=== PATIENT | female | born 1965 | race African-American/Black ===

== ENCOUNTER 2020-10-04 11:44 | Emergency (ER) | payer MEDICAID, OTHER ==
[~2020-10-04] VITALS: Ht 162.6 cm; Wt 66.0 kg
[~2020-10-04 11:44] MED LIST: Z-QUIL
[2020-10-04] MEDS ORDERED: IBUP-2029 MT (12:11)
[2020-10-04] MEDS ORDERED: CLIN300C12 MT (12:11)
[2020-10-04] MEDS ORDERED: TRAM50TA3 MT (12:11)
[2020-10-04] MEDS ORDERED: KETOROLAC 60MG/2ML VIAL IM ONE (12:15)
[2020-10-04 12:26] VITALS: BP 145/82
== END 2020-10-04 12:28 | disposition home or self-care (01) ==
LOC: ER 11:44
DX: K04.7 Periapical abscess without sinus (principal); Z98.890 Other specified postprocedural states; Z79.899 Other long term (current) drug therapy
CPT/HCPCS: 96372; 99283; J1885; Z7610

== ENCOUNTER 2020-10-07 08:33 | Emergency (ER) | payer OTHER ==
[~2020-10-07] VITALS: Ht 162.6 cm; Wt 66.0 kg
[~2020-10-07 08:33] MED LIST changes: +CLIN300C12 MT; +IBUP-2029 MT; +TRAM50TA3 MT
[2020-10-07] MEDS ORDERED: FAMOTIDINE 20MG/2ML VIAL IV ONE (09:15)
[2020-10-07] MEDS ORDERED: DIPHENHYDRAMINE 50MG/ML VIAL IV ONE (09:15)
[2020-10-07] MEDS ORDERED: LEVO750T46 PO (09:20)
[2020-10-07] MEDS ORDERED: METR500T PO (09:20)
[2020-10-07 10:55] VITALS: BP 126/72
[2020-10-07] MEDS ORDERED: ACETAMINOPHEN 325MG TABLET PO ONE (11:15)
== END 2020-10-07 11:15 | disposition home or self-care (01) ==
LOC: ER 08:33
DX: L27.0 Generalized skin eruption due to drugs and medicaments taken internally (principal); Z98.890 Other specified postprocedural states; Z88.0 Allergy status to penicillin; T36.8X5A Adverse effect of other systemic antibiotics, initial encounter; Y92.018 Other place in single-family (private) house as the place of occurrence of the external cause
CPT/HCPCS: 93005; 96374; 96375; 99284; J1200; J3490

== ENCOUNTER 2021-09-25 08:15 | Inpatient (IN) | payer MEDICAID, OTHER ==
[~2021-09-25] VITALS: Ht 162.6 cm; Wt 73.5 kg
[~2021-09-25 08:15] MED LIST changes: +CLIN-194 MT; -CLIN300C12 MT; +LEVO750T46 PO; +METR500T PO
[2021-09-25] MEDS ORDERED: MORPHINE SULFATE 4 MG/ML CPJ (NOT FOR IM USE) IV STA (10:17)
[2021-09-25] MEDS ORDERED: ONDANSETRON HCL 4MG/2ML INJ IV STA (10:17)
[2021-09-25 10:45] LABS: HEMATOCRIT. 43.9 % (36.0-48.0); HEMOGLOBIN. 14.9 g/dL (12.0-16.0); MEAN CORPUSCULAR HEMOGLOBIN 29.1 pg (28.0-32.0); MEAN CORPUSCULAR VOLUME 85.8 fL (81.0-99.0); MEAN PLATELET VOLUME 9.2 fl (7.4-10.4); PLATELET 173 x1000/uL (130-400); RED BLOOD CELL COUNT 5.11 mill/uL (4.2-5.4); RED CELL DISTRIBUTION WIDTH 14.7 % (11.6-14.6)
[2021-09-25 10:49] LABS: CHLORIDE 106 mEq/L (98-107)
[2021-09-25 10:59] LABS: C REACTIVE PROTEIN QUANT 1.4 mg/L (0.0-3.0)
[2021-09-25 12:00] LABS: PLATELET ESTIMATE NORMAL
[2021-09-25 12:06] LABS: CLARITY URINE CLEAR (CLEAR); COLOR URINE YELLOW (YELLOW); KETONES URINE 4+ (NEGATIVE); LEUKOCYTE ESTERASE URINE 3+ (NEGATIVE); NITRITE URINE NEGATIVE (NEGATIVE); OCCULT BLOOD URINE NEGATIVE (NEGATIVE); PH URINE 6.5 (4.5-8.0); PROTEIN URINE TRACE (NEGATIVE); SPECIFIC GRAVITY URINE 1.022 (1.005-1.030)
[2021-09-25] MEDS ORDERED: LEVOFLOXACIN 500MG PREMIX 100 ML IV ONE (14:15)
[2021-09-25] MEDS ORDERED: ONDANSETRON HCL 4MG/2ML INJ IV PRN (14:30)
[2021-09-25] MEDS ORDERED: SODIUM CHLORIDE 0.9% 1,000 ML IV SCH (15:00)
[2021-09-25 22:10] VITALS: BP 110/60
[2021-09-25 23:00] VITALS: BP 116/62
[2021-09-26] MEDS ORDERED: NALOXONE HCL 0.4 MG/ML 1ML VIAL IV PRN (00:45)
[2021-09-26] MEDS ORDERED: DEXT 5%/0.9% NACL KCL 20MEQ/L 1,000 ML IV SCH (01:00)
[2021-09-26] MEDS: ONDANSETRON HCL 4MG/2ML INJ IV PRN ×4 (01:03→21:11)
[2021-09-26] MEDS: MORPHINE SULFATE 4 MG/ML CPJ (NOT FOR IM USE) IV PRN ×4 (01:04→21:12)
[2021-09-26 04:00] VITALS: BP 120/64
[2021-09-26 08:00] VITALS: BP 134/68
[2021-09-26 10:20] LABS: HEMOGLOBIN. 12.5 g/dL (12.0-16.0); MEAN CORPUSCULAR HEMOGLOBIN 28.6 pg (28.0-32.0); MEAN CORPUSCULAR VOLUME 86.6 fL (81.0-99.0); MEAN PLATELET VOLUME 8.6 fl (7.4-10.4); PLATELET 148 x1000/uL (130-400); RED BLOOD CELL COUNT 4.39 mill/uL (4.2-5.4); RED CELL DISTRIBUTION WIDTH 14.4 % (11.6-14.6)
[2021-09-26 10:26] LABS: PROTHROMBIN TIME 11.1 sec (9.6-11.0)
[2021-09-26] MEDS: DEXT 5%/0.9% NACL KCL 20MEQ/L 1,000 ML IV SCH ×3 (10:36→17:04)
[2021-09-26] MEDS: BENZONATATE 100MG CAPSULE PO PRN ×2 (10:36→23:13)
[2021-09-26] MEDS: ACETAMINOPHEN 325MG TABLET PO PRN (10:36)
[2021-09-26 10:37] LABS: CHLORIDE 109 mEq/L (98-107)
[2021-09-26] MEDS ORDERED: DEXT 5%/0.9% NACL 1,000 ML IV SCH (11:15)
[2021-09-26 12:00] VITALS: BP 112/58
[2021-09-26] MEDS: LEVOFLOXACIN 500MG PREMIX 100 ML IV SCH (12:21)
[2021-09-26] MEDS ORDERED: LEVOFLOXACIN 500MG PREMIX 100 ML IV SCH (15:00)
[2021-09-26] MEDS ORDERED: LORAZEPAM 0.5MG TABLET PO PRN (15:15)
[2021-09-26] MEDS ORDERED: HYDROCODONE/ACETAMINOPHEN 5/325MG TABLET PO PRN (15:30)
[2021-09-26] MEDS ORDERED: METOCLOPRAMIDE HCL 10MG/2ML VIAL IV PRN (15:45)
[2021-09-26 15:52] VITALS: BP 108/60
[2021-09-26 20:00] VITALS: BP 111/75
[2021-09-26] MEDS: MELATONIN 3MG TABLET PO SCH (21:00)
[2021-09-26 22:35] LABS: PLATELET ESTIMATE NORMAL
[2021-09-27] VITALS: BP 105/69
[2021-09-27] MEDS: ACETAMINOPHEN 325MG TABLET PO PRN ×2 (01:05→11:01)
[2021-09-27] MEDS: DEXT 5%/0.9% NACL KCL 20MEQ/L 1,000 ML IV SCH ×3 (01:05→17:35)
[2021-09-27 04:00] VITALS: BP 103/80
[2021-09-27 07:37] VITALS: BP 100/51
[2021-09-27 08:12] LABS: HEMATOCRIT. 35.5 % (36.0-48.0); HEMOGLOBIN. 12.1 g/dL (12.0-16.0); MEAN CORPUSCULAR HEMOGLOBIN 29.2 pg (28.0-32.0); MEAN CORPUSCULAR VOLUME 85.5 fL (81.0-99.0); MEAN PLATELET VOLUME 9.1 fl (7.4-10.4); PLATELET 137 x1000/uL (130-400); RED BLOOD CELL COUNT 4.14 mill/uL (4.2-5.4); RED CELL DISTRIBUTION WIDTH 14.4 % (11.6-14.6)
[2021-09-27 08:25] LABS: CHLORIDE 109 mEq/L (98-107)
[2021-09-27 08:33] LABS: PHOSPHORUS 2.1 mg/dL (2.5-4.9)
[2021-09-27] MEDS ORDERED: BISACODYL 10MG SUPP PR NR (10:00)
[2021-09-27] MEDS: LEVOFLOXACIN 500MG PREMIX 100 ML IV SCH (10:15)
[2021-09-27 11:57] VITALS: BP 120/65
[2021-09-27] MEDS ORDERED: NA PHOS,M-B/NA PHOS,DI-BA ENEMA 118ML PR NR (12:00)
[2021-09-27] MEDS: ONDANSETRON HCL 4MG/2ML INJ IV PRN ×2 (12:57→20:22)
[2021-09-27] MEDS: MORPHINE SULFATE 4 MG/ML CPJ (NOT FOR IM USE) IV PRN ×2 (12:58→20:21)
[2021-09-27 16:00] VITALS: BP 118/66
[2021-09-27 20:00] VITALS: BP 124/72
[2021-09-27] MEDS: MELATONIN 3MG TABLET PO SCH (20:23)
[2021-09-28] VITALS: BP 104/67
[2021-09-28 04:00] VITALS: BP 108/73
[2021-09-28 07:37] LABS: HEMATOCRIT. 38.7 % (36.0-48.0); HEMOGLOBIN. 13.3 g/dL (12.0-16.0); MEAN CORPUSCULAR HEMOGLOBIN 29.4 pg (28.0-32.0); MEAN CORPUSCULAR VOLUME 85.5 fL (81.0-99.0); MEAN PLATELET VOLUME 8.8 fl (7.4-10.4); PLATELET 141 x1000/uL (130-400); RED BLOOD CELL COUNT 4.52 mill/uL (4.2-5.4); RED CELL DISTRIBUTION WIDTH 14.2 % (11.6-14.6)
[2021-09-28 07:56] VITALS: BP 90/57
[2021-09-28 08:34] LABS: CHLORIDE 106 mEq/L (98-107)
[2021-09-28] MEDS: DEXT 5%/0.9% NACL KCL 20MEQ/L 1,000 ML IV SCH ×2 (10:00→18:00)
[2021-09-28] MEDS: LEVOFLOXACIN 500MG PREMIX 100 ML IV SCH (11:09)
[2021-09-28 11:59] VITALS: BP 102/60
[2021-09-28] MEDS ORDERED: POLYETHYLENE GLYCOL 3350 (17GM) 1 DOSE PACK PO PRN (15:00)
[2021-09-28] MEDS ORDERED: LACTULOSE 20G/30ML UDC PO NR (15:30)
[2021-09-28 16:00] VITALS: BP 104/61
[2021-09-28] MEDS: DOCUSATE SODIUM 250MG CAPSULE PO SCH (16:02)
[2021-09-28 20:00] VITALS: BP 101/67
[2021-09-28 21:18] LABS: PLATELET ESTIMATE NORMAL
[2021-09-28] MEDS: MELATONIN 3MG TABLET PO SCH (21:34)
[2021-09-28 22:46] LABS: PLATELET ESTIMATE NORMAL
[2021-09-29] VITALS: BP 99/71
[2021-09-29] MEDS: DEXT 5%/0.9% NACL KCL 20MEQ/L 1,000 ML IV SCH ×2 (02:00→09:35)
[2021-09-29 04:00] VITALS: BP 104/69
[2021-09-29 07:23] LABS: BASOPHILS % 0.3 % (0.0-2.0); EOSINOPHILS % 0.8 % (0.0-5.0); HEMATOCRIT. 40.3 % (36.0-48.0); HEMOGLOBIN. 13.9 g/dL (12.0-16.0); LYMPHOCYTES % 37.3 % (20.0-50.0); MEAN CORPUSCULAR VOLUME 84.2 fL (81.0-99.0); MEAN PLATELET VOLUME 8.6 fl (7.4-10.4); MONOCYTES % 12.2 % (2.0-8.0); NEUTROPHILS % 49.4 % (40.0-76.0); PLATELET 150 x1000/uL (130-400); RED BLOOD CELL COUNT 4.78 mill/uL (4.2-5.4); RED CELL DISTRIBUTION WIDTH 14.2 % (11.6-14.6)
[2021-09-29 07:56] LABS: CHLORIDE 103 mEq/L (98-107)
[2021-09-29 08:10] VITALS: BP 106/64
[2021-09-29] MEDS: DOCUSATE SODIUM 250MG CAPSULE PO SCH (08:36)
[2021-09-29] MEDS: LEVOFLOXACIN 500MG PREMIX 100 ML IV SCH (11:23)
[2021-09-29 12:15] VITALS: BP 108/62
[2021-09-29 16:30] VITALS: BP 111/67
[2021-09-29 16:42] VITALS: BP 111/67
== END 2021-09-29 20:49 | disposition home or self-care (01) | DRG 720 ==
LOC: ER 08:15 → 7WST 12:18 → EDBEDREQSVC 12:27 → EDBEDREQ 12:27 → SUPCPDRO 13:44 → ENRESERV 18:38 → 7WST 09-26 01:26
PROVIDERS: ADMIT Internal Medicine; ATTEND Internal Medicine
DX: A41.89 Other specified sepsis (principal); U07.1 COVID-19; K56.7 Ileus, unspecified; N39.0 Urinary tract infection, site not specified; D72.825 Bandemia; K56.41 Fecal impaction; K57.90 Diverticulosis of intestine, part unspecified, without perforation or abscess without bleeding; Z28.310 Unvaccinated for COVID-19; Z78.9 Other specified health status; Z88.0 Allergy status to penicillin; Z79.899 Other long term (current) drug therapy; Z79.1 Long term (current) use of non-steroidal anti-inflammatories (NSAID); K52.9 Noninfective gastroenteritis and colitis, unspecified
CPT/HCPCS: 36415; 71045; 74018; 74176; 76700; 80048; 80053; 80076; 81003; 82728; 83605; 83735; 84100; 84145; 84484; 85025; 86140; 87426; 93005; 99291; C9803; J1956; J2270; J2405; J2765